=== PATIENT | female | born 1990 | race African-American/Black ===

== ENCOUNTER 2019-04-13 03:01 | Emergency (ER) | payer SELFPAY ==
[~2019-04-13] VITALS: Ht 170.2 cm; Wt 70.0 kg
[2019-04-13 03:17] VITALS: BP 168/100
== END 2019-04-13 05:10 | disposition home or self-care (01) ==
LOC: ER 03:01
DX: S20.311A Abrasion of right front wall of thorax, initial encounter (principal); V49.88XA Car occupant (driver) (passenger) injured in other specified transport accidents, initial encounter; Y93.89 Activity, other specified; Y92.89 Other specified places as the place of occurrence of the external cause; Y99.8 Other external cause status
CPT/HCPCS: 99283